=== PATIENT | male | born 1980 | race Caucasian/White ===

== ENCOUNTER 2024-08-16 08:19 | Outpatient (OUT) | payer OTHER, SELFPAY | END 2024-08-16 08:20 | disposition home or self-care (01) | LOC: PST 08:19 | PROVIDERS: PCP Family Medicine; Visit Provider Surgery | DX: Z12.11 Encounter for screening for malignant neoplasm of colon (principal) ==

== ENCOUNTER 2024-08-30 06:33 | Day surgery (SDC) | payer OTHER, SELFPAY ==
--- OUTSIDE RECORDS SUMMARY | 2024-08-30 06:36 | XMS_ITS | CCD ---
Author Organization [facility] Care Team Providers Care Leguillon Debeader Name Role Phone DR GARRISON MORA Attending Unavailable DR GARRISON MORA Consulting Unavailable DR GARRISON MORA Primary Care Unavailable DR GARRISON MORA Admitting Unavailable GARRISON MORA Attending Unavailable Garrison Mora MD Primary Care Provider Medications Current Medications Medication Drug Class(es) Dates Sig (Normalized) Sig (Original) bisacodyl 5 mg delayed release oral tablet (2 sources) Stimulant Laxative Start: 05-04-2024 End: 05-04-2024 take 1 tablet by mouth once bisacodyl (Dulcolax) 5 MG EC tablet Indications: Screening for malignant neoplasm of colon Take 1 tablet (5 mg) by mouth 1 time for 1 dose Do not crush, chew, or split. Take as detailed on clinic hand out for colonoscopy prep 1 tablet 05/04/2024 05/04/2024 Active lisinopril 5 mg oral tablet (7 sources) Angiotensin Converting Enzyme Inhibitor Start: 04-20-2024 End: 04-20-2024 take 1 tablet by mouth once daily lisinopril 5 MG tablet Indications: Essential hypertension, benign (CMS/HCC) Take 1 tablet (5 mg) by mouth Daily 90 tablet 3 04/20/2024 Active polyethylene glycol 3350 70108 mg powder for oral solution (2 sources) Osmotic Laxative Start: 05-04-2024 End: 05-04-2024 take 17 g by mouth once polyethylene glycol, PEG, 3350 (Glycolax) 17 GM/SCOOP powder Indications: Colonoscopy Take 238 g by mouth 1 (one) time for 1 dose Take as detailed from clinic hand out for colonoscopy prep 238 g 05/04/2024 05/04/2024 Active Problems Active Problems Problem Classification Problem Date Documented Da te Episodic/Chronic Essential hypertension (8 sources) Benign essential hypertension; Translations: [Essential (primary) hypertension] Onset: 04-20-2024 04-20-2024 Chronic Nutritional deficiencies (7 sources) Vitamin D deficiency, unspecified; Translations: [Vitamin D deficiency] Onset: 04-08-2022 04-20-2024 Chronic Other screening for suspected conditions (not mental disorders or infectious disease) (2 sources) Patient encounter status; Translations: [Encounter for screening for malignant neoplasm of colon] 05-04-2024 Episodic Past or Other Problems Problem Classification Problem Date Documented Date Episodic/Chronic Diverticulosis and diverticulitis (6 sources) Diverticulosis of sigmoid colon; Translations: [Diverticulosis of large intestine without perforation or abscess without bleeding] Onset: 04-20-2024 Resolved: 04-20-2024 04-20-2024 Chronic Other non-traumatic joint disorders (6 sources) Pain in right shoulder; Translations: [Pain in joint, shoulder region] Onset: 04-20-2024 Resolved: 04-20-2024 04-20-2024 Episodic Other skin disorders (6 sources) Vesicular eczema; Translations: [Dyshidrosis [pompholyx]] Onset: 04-20-2024 04-20-2024 Episodic Residual codes; unclassified (6 sources) Family history of malignant melanoma; Translations: [Family history of malignant neoplasm of other organs or systems] Onset: 04-20-2024 04-20-2024 Episodic Spondylosis; intervertebral disc disorders; other back problems (6 sources) Degeneration of lumbar intervertebral disc; Translations: [Other intervertebral disc degeneration, lumbar region] Onset: 04-20-2024 Resolved: 04-20-2024 04-20-2024 Chronic Spondylosis; intervertebral disc disorders; other back problems (6 sources) Neck pain; Translations: [Cervicalgia] Onset: 04-20-2024 Resolved: 04-20-2024 04-20-2024 Episodic Results Test Name Value Interpretation Reference Range Facil ity VIT D 25-OH LABCORPon 2021 Vitamin D, 25-Hydroxy 42.1 ng/mL Normal 30.0-100.0 [facility] Comment on above: Result Comment: Amanda min D deficiency has been defined by the [place] [employer] and an Endocrine Society practice guideline as a level of serum 25-OH vitamin D less than 20 ng/mL (1,2). The Endocrine Society went on to further define vitamin D insufficiency as a level between 21 and 29 ng/mL (2). 1. IOM ([place] [employer]). 2010. Dietary reference intakes for calcium and D. [place]: The National Academies Press. 2. Jonathon MF, Nadege JUSTIN, Linda NAVARRO, et al. Evaluation, treatment, and prevention of vitamin D deficiency: an Endocrine Society clinical practice guideline. JCEM. 2010; 96(7):1911-30. Performed By: #### V ITADLC #### [facility] [address] [place] [address] Dr. Stefan Ruffin CBC AUTO DIFFon 04-07-2022 BASO # 0.1 103/ul Normal 0.0-0.1 [facility] Comment on above: Performed By: #### C BC #### [facility] [address] [place] [address] Dr. Stefan Ruffin Basophils/100 WBC (Bld) 1.2 % Normal 0.2-2.0 [facility] Comment on above: Performed By: #### C BC #### [facility] [address] [place] [address] Dr. Stefan Ruffin EO # 0.2 103/ul Normal 0.0-0.7 [facility] Comment on above: Performed By: #### C BC #### [facility] [address] [place] [address] Dr. Stefan Ruffin Eosinophils/100 WBC (Bld) 5.6 % Normal 0.9-7.0 [facility] Comment on above: Performed By: #### C BC #### [facility] [address] [place] [address] Dr. Stefan Ruffin Erythrocyte distribution width (RBC) [Ratio] 12.8 % Normal 11.0-15.0 [facility] Comment on above: Performed By: #### C BC #### [facility] [address] [place] [address] Dr. Stefan Ruffin Hematocrit (Bld) [Volume fraction] 47.3 % Normal 42.0-54.0 [facility] Comment on above: Performed By: #### C BC #### [facility] [address] [place] [address] Dr. Stefan Ruffin Hemoglobin (Bld) [Mass/Vol] 16.2 g/dL Normal 14.0-18.0 [facility] Comment on above: Performed By: #### C BC #### [facility] [address] [place] [address] Dr. Stefan Ruffin IG # 0.01 10e3/ul Normal 0.00-0.03 [facility] Comment on above: Performed By: #### C BC #### [facility] [address] [place] [address] Dr. Stefan Ruffin IG % 0.2 % Normal 0.0-0.5 [facility] Comment on above: Performed By: #### C BC #### [facility] [address] [place] [address] Dr. Stefan Ruffin LYMPH # 1.6 103/ul Normal 1.2-3.8 [facility] Comment on above: Performed By: #### C BC #### [facility] [address] [place] [address] Dr. Stefan Ruffin Lymphocytes/100 WBC (Bld) 36.8 % Normal 20.5-60.0 [facility] Comment on above: Performed By: #### C BC #### [facility] [address] [place] [address] Dr. Stefan Ruffin MANUAL DIFF REQ NO Normal [facility] Comment on above: Performed By: #### C BC #### [facility] [address] [place] [address] Dr. Stefan Ruffin MCH (RBC) [Entitic mass] 31.8 pg Normal 25.9-34.0 [facility] Comment on above: Performed By: #### C BC #### [facility] [address] [place] [address] Dr. Stefan Ruffin MCHC (RBC) [Mass/Vol] 34.2 g/dL Normal 29.9-35.2 [facility] Comment on above: Performed By: #### C BC #### [facility] [address] [address] [address] Stefan Ruffin MCV (RBC) [Entitic vol] 92.9 fL Normal 80.0-94.0 [facility] Comment on above: Performed By: #### C BC #### [facility] [address] [place] [address] Dr. Setfan Ruffin MONO # 0.4 103/ul Normal 0.3-0.8 [facility] Comment on above: Performed By: #### C BC #### [facility] [address] [place] [address] Dr. Stefan Ruffin Monocytes/100 WBC (Bld) 8.1 % Normal 1.7-12.0 [facility] Comment on above: Performed By: #### C BC #### [facility] [address] [place] [address] Dr. Stefan Ruffin NEUT # 2.1 103/ul Normal 1.4-6.5 [facility] Comment on above: Performed By: #### C BC #### [facility] [address] [place] [address] Dr. Stefan Ruffin Neutrophils/100 WBC (Bld) 48.1 % Normal 43.0-75.0 [facility] Comment on above: Performed By: #### C BC #### [facility] [address] [place] [address] Dr. Stefan Ruffin Platelet mean volume (Bld) [Entitic vol] 10.2 fL Normal 9.5-13.5 [facility] Comment on above: Performed By: #### C BC #### [facility] [address] [place] [address] Dr. Stefan Ruffin PLT 274 103/ul Normal 150-450 [facility] Comment on above: Performed By: #### C BC #### [facility] [address] [place] [address] Dr. Stefan Ruffin RBC 5.09 106/ul Normal 4.70-6.10 [facility] Comment on above: Performed By: #### C BC #### [facility] [address] [place] [address] Dr. Stefan Ruffin WBC 4.3 103/ul Normal 4.0-11.0 [facility] Comment on above: Performed By: #### C BC #### [facility] [address] [address] [address] Stefan Ruffin GLYCOHEMOGLOBIN A1Con 2021 ADA RECOMMENDATION SEE BELOW Normal [facility] Comment on above: Result Comment: ADA RECOMMENDED LIMIT 4.0 - 6.0 ADA THERAPEUTIC TARGET < 7.0 ACTION SUGGESTED > 7.0 Performed By: #### A 1C #### [facility] [address] [address] [address] Stefan Ruffin Glucose [Mass/Vol] 108 mg/dL Normal [facility] Comment on above: Performed By: #### A 1C #### [facility] [address] [place] [address] Dr. Stefan Ruffin HbA1c (Bld) [Mass fraction] 5.4 % Normal 4.5-6.2 [facility] Comment on above: Performed By: #### A 1C #### [facility] [address] [address] [address] Stefan Ruffin LIPID PROFILEon 04-07-2022 CHOL-HDL RATIO NORM SEE BELOW Normal [facility] Comment on above: Result Comment: 3.3 - 4.4 LOW RISK 4.4 - 7.1 AVERAGE RISK 7.1 - 11.0 MODERATE RISK >11.0 HIGH RISK Performed By: #### L IPID, LIVER, TSH, BMP #### [facility] [address] [address] [address] Stefan Ruffin Cholesterol [Mass/Vol] 209 mg/dL Critically high <=200 [facility] Comment on above: Performed By: #### L IPID, LIVER, TSH, BMP #### [facility] [address] [address] [address] Stefan Ruffin Cholesterol in HDL [Mass/Vol] 40 mg/dL Normal 40-60 [facility] Comment on above: Performed By: #### L IPID, LIVER, TSH, BMP #### [facility] [address] [address] [address] Stefan Ruffin Cholesterol in LDL [Mass/Vol] 156.4 mg/dL Normal [facility] Comment on above: Performed By: #### L IPID, LIVER, TSH, BMP #### [facility] [address] [address] [address] Stefan Ruffin Cholesterol.total/Cho lesterol in HDL [Mass ratio] 5.2 {ratio} Normal [facility] Comment on above: Performed By: #### L IPID, LIVER, TSH, BMP #### [facility] [address] [place] [address] Dr. Stefan Ruffin HDL NORMAL > or = 60 mg/dl - LOW CARDIOVASCULAR RISK <40 mg/dl - HIGH CARDIOVASCULAR RISK Normal [facility] Comment on above: Performed By: #### L IPID, LIVER, TSH, BMP #### [facility] [address] [place] [address] Dr. Stefan Ruffin LDL CALC NORMAL SEE BELOW Normal [facility] Comment on above: Result Comment: <100 mg/dl OPTIMAL 100 - 129 mg/dl NEAR OR ABOVE OPTIMAL 130 - 159 mg/dl BORDERLINE HIGH 160 - 189 mg/dl HIGH >190 mg/dl VERY HIGH Performed By: #### L IPID, LIVER, TSH, BMP #### [facility] [address] [place] [address] Dr. Stefan Ruffin Triglyceride [Mass/Vol] 63 mg/dL Normal <=150 [facility] Comment on above: Performed By: #### L IPID, LIVER, TSH, BMP #### [facility] [address] [place] [address] Dr. Stefan Ruffin VLDL CALC 12.6 mg/dL Normal [facility] Comment on above: Performed By: #### L IPID, LIVER, TSH, BMP #### [facility] [address] [place] [address] Dr. Stefan Ruffin LIVER PROFILEon 04-07-2022 Albumin [Mass/Vol] 4.3 g/dL Normal 3.4-5.0 [facility] Comment on above: Performed By: #### L IPID, LIVER, TSH, BMP #### [facility] [address] [place] [address] Dr. Stefan Ruffin Albumin/Globulin [Mass ratio] 1.3 {ratio} Normal [facility] Comment on above: Performed By: #### L IPID, LIVER, TSH, BMP #### [facility] [address] [place] [address] Dr. Stefan Ruffin ALP [Catalytic activity/Vol] 47 U/L Normal 46-116 [facility] Comment on above: Performed By: #### L IPID, LIVER, TSH, BMP #### [facility] [address] [place] [address] Dr. Stefan Ruffin ALT [Catalytic activity/Vol] 34 U/L Normal 16-63 [facility] Comment on above: Performed By: #### L IPID, LIVER, TSH, BMP #### [facility] [address] [place] [address] Dr. Stefan Ruffin AST [Catalytic activity/Vol] 25 U/L Normal 15-37 [facility] Comment on above: Performed By: #### L IPID, LIVER, TSH, BMP #### [facility] [address] [place] [address] Dr. Stefan Ruffin BILI, CONJUGATED 0.2 mg/dL Normal 0.0-0.2 [facility] Comment on above: Performed By: #### L IPID, LIVER, TSH, BMP #### [facility] [address] [place] [address] Dr. Stefan Ruffin Bilirubin [Mass/Vol] 1.0 mg/dL Normal 0.2-1.0 [facility] Comment on above: Performed By: #### L IPID, LIVER, TSH, BMP #### [facility] [address] [place] [address] Dr. Stefan Ruffin Globulin (S) [Mass/Vol] 3.4 g/dL Normal [facility] Comment on above: Performed By: #### L IPID, LIVER, TSH, BMP #### [facility] [address] [place] [address] Dr. Stefan Ruffin Protein [Mass/Vol] 7.7 g/dL Normal 6.4-8.2 [facility] Comment on above: Performed By: #### L IPID, LIVER, TSH, BMP #### [facility] [address] [address] [address] Stefan Ruffin PROF CHEM 8 (BAS METB)on Anion gap [Moles/Vol] 11.8 mmol/L Normal [facility] Comment on above: Performed By: #### L IPID, LIVER, TSH, BMP #### [facility] [address] [address] [address] Stefan Ruffin Calcium [Mass/Vol] 9.3 mg/dL Normal 8.5-10.1 [facility] Comment on above: Performed By: #### L IPID, LIVER, TSH, BMP #### [facility] [address] [place] [address] Dr. Stefan Ruffin Chloride [Moles/Vol] 100 mmol/L Normal 98-107 [facility] Comment on above: Performed By: #### L IPID, LIVER, TSH, BMP #### [facility] [address] [place] [address] Dr. Stefan Ruffin CO2 [Moles/Vol] 29.0 mmol/L Normal 21.0-32.0 [facility] Comment on above: Performed By: #### L IPID, LIVER, TSH, BMP #### [facility] [address] [place] [address] Dr. Stefan Ruffin Creatinine [Mass/Vol] 0.91 mg/dL Normal 0.70-1.30 [facility] Comment on above: Performed By: #### L IPID, LIVER, TSH, BMP #### [facility] [address] [place] [address] Dr. Stefan Ruffin EGFR-AF [place] >60 Normal >=60 [facility] Comment on above: Performed By: #### L IPID, LIVER, TSH, BMP #### [facility] [address] [place] [address] Dr. Stefan Ruffin EGFR-NON AF [place] >60 Normal >=60 [facility] Comment on above: Performed By: #### L IPID, LIVER, TSH, BMP #### [facility] [address] [address] [address] Stefan Ruffin Glucose [Mass/Vol] 88 mg/dL Normal 74-106 [facility] Comment on above: Performed By: #### L IPID, LIVER, TSH, BMP #### [facility] [address] [place] [address] Dr. Stefan Ruffin Potassium [Moles/Vol] 3.8 mmol/L Normal 3.5-5.1 [facility] Comment on above: Performed By: #### L IPID, LIVER, TSH, BMP #### [facility] [address] [place] [address] Dr. Stefan Ruffin Sodium [Moles/Vol] 137 mmol/L Normal 136-145 [facility] Comment on above: Performed By: #### L IPID, LIVER, TSH, BMP #### [facility] [address] [place] [address] Dr. Stefan Ruffin Urea nitrogen [Mass/Vol] 14.0 mg/dL Normal 7.0-18.0 [facility] Comment on above: Performed By: #### L IPID, LIVER, TSH, BMP #### [facility] [address] [place] [address] Dr. Stefan Ruffin Urea nitrogen/Creatinine [Mass ratio] 15.4 mg/mg Normal [facility] Comment on above: Performed By: #### L IPID, LIVER, TSH, BMP #### [facility] [address] [place] [address] Dr. Stefan Ruffin TSHon 04-07-2022 TSH 1.832 uIU/mL Normal 0.358-3.740 [facility] Comment on above: Performed By: #### L IPID, LIVER, TSH, BMP #### [facility] [address] [place] [address] Dr. Stefan Ruffin Vital Signs Date Time Vital Sign Value Performing Clinician Milan lity 05-04-2024 13:55-0400 Body height 172.7 cm Robert Latif [employer] Work Phone: [facility] 05-04-2024 13:55-0400 Body mass index (BMI) [Ratio] 27.67 kg/m2 Robert Latif DO Work Phone: [facility] 05-04-2024 13:55-0400 Body weight 82.56 kg Robert Latif DO Work Phone: [facility] 05-04-2024 13:55-0400 Diastolic blood pressure 74 mm[Hg] Robert Latif DO Work Phone: [facility] 05-04-2024 13:55-0400 Heart rate 79 /min Robert Latif DO Work Phone: [facility] 05-04-2024 13:55-0400 Respiratory rate 12 /min Robert Latif DO Work Phone: [facility] 05-04-2024 13:55-0400 SaO2% (BldA) [Mass fraction] 98 % Robert Latif DO Work Phone: [facility] 05-04-2024 13:55-0400 Systolic blood pressure 116 mm[Hg] Robert Latif DO Work Phone: [facility] 04-20-2024 09:29-0400 Body height 172.7 cm Garrison Mora MD Work Phone: [facility] 04-20-2024 09:29-0400 Body mass index (BMI) [Ratio] 27.98 kg/m2 Garrison Mora MD Work Phone: [facility] 04-20-2024 09:29-0400 Body temperature 97.3 [degF] Garrison Mora MD Work Phone: [facility] 04-20-2024 09:29-0400 Body weight 83.46 kg Garrison Mora MD Work Phone: [facility] 04-20-2024 09:29-0400 Diastolic blood pressure 86 mm[Hg] Garrison Mora MD Work Phone: [facility] 04-20-2024 09:29-0400 Heart rate 78 /min Garrison Mora MD Work Phone: [facility] 04-20-2024 09:29-0400 Respiratory rate 20 /min Garrison Mora MD Work Phone: [facility] 04-20-2024 09:29-0400 SaO2% (BldA) [Mass fraction] 98 % Garriosn Mora MD Work Phone: [facility] 04-20-2024 09:29-0400 Systolic blood pressure 120 mm[Hg] Garrison Mora MD Work Phone: [facility] Encounters Encounter Date Encounter Type Care Provider Facility Start: 05-04-2024 End: 05-04-2024 Bamboo flowsheet Robert Salomon [employer] Work Phone: [facility] Start: 05-04-2024 End: 05-04-2024 Bamboo flowsheet Robert Salomon [employer] Work Phone: [facility] Start: 05-04-2024 End: 05-04-2024 Patient encounter procedure Robert Latif [employer] Work Phone: [facility] Comment on above: Screening for malign ant neoplasm of colon (Primary Dx) Start: 04-20-2024 End: 04-20-2024 Bamboo flowsheet Garrison Mora MD Work Phone: [facility] Start: 04-20-2024 End: 04-20-2024 Bamboo flowsheet Garrison Mora MD Work Phone: [facility] Start: 04-20-2024 End: 04-20-2024 Patient encounter procedure Garrison Mora MD Work Phone: [facility] Work Phone: Start: 04-20-2024 End: 04-20-2024 Periodic preventive med est patient 40-64yrs Garrison Mora MD Work Phone: [facility] Comment on above: Annual physical exam (Primary Dx); Essential hypertension, benign (CMS/HCC) Start: 04-20-2024 End: 04-20-2024 ambulatory GARRISON MORA Not Available Start: 04-08-2022 Encounter for genera l adult medical examination without abnormal findings DR GARRISON MORA [facility] Start: 04-07-2022 End: 04-08-[address] GARRISON MORA Facility:[facility] Start: 04-07-2022 End: 04-08-2022 Encounter for general adult medical examination without abnormal findings DR GARRISON MORA Facility:[facility] Procedures Date Procedure Procedure Detail Performing Clinician Start: 04-07-[address] GARRISON VELIZ Comment on above: Performed By: #### [facility] #### [facility] [address] [address] [address] Stefan Ruffin Plan of Treatment Date Care Activity Detail Author Start: 04-21-2025 End: 04-21-2025 Patient encounter procedure 04/21/2025 9:00 AM EDT Office Visit [facility] [address] [place] [address] Garrison Mora MD [address] [place] [address] [facility] Start: 05-04-2024 End: 05-04-2024 Patient encounter procedure 05/04/2024 2:00 PM EDT Office Visit [facility] [address] [facility] [address] [place] [address] Robert Latif DO [address] [place] [id number] Arrived [facility] Comment on above: Arrived Start: 04-20-2024 End: 04-20-2025 Basic metabolic 1998 panel - Serum or Plasma Basic metabolic panel Lab Routine Annual physical exam Expected: 04/20/2024 (Approximate), Expires: 04/20/2025 [facility] Comment on above: Expected: 04/20/2024 (Approximate), Expires: 04/20/2025 Start: 04-20-2024 End: 04-20-2025 CBC W Auto Differential panel - Blood CBC and differential Lab Routine Annual physical exam Expected: 04/20/2024 (Approximate), Expires: 04/20/2025 [facility] Comment on above: Expected: 04/20/2024 (Approximate), Expires: 04/20/2025 Start: 04-20-2024 End: 04-20-2025 Hemoglobin A1c/Hemoglobin.total in Blood Hemoglobin A1c Lab Routine Annual physical exam Expected: 04/20/2024 (Approximate), Expires: 04/20/2025 [facility] Work Phone: Comment on above: Expected: 04/20/2024 (Approximate), Expires: 04/20/2025 Start: 04-20-2024 End: 04-20-2025 Hepatic function 2000 panel - Serum or Plasma Hepatic function panel Lab Routine Annual physical exam Expected: 04/20/2024 (Approximate), Expires: 04/20/2025 [facility] Comment on above: Expected: 04/20/2024 (Approximate), Expires: 04/20/2025 Start: 04-20-2024 End: 04-20-2025 Lipid 1996 panel - Serum or Plasma Lipid panel Lab Routine Annual physical exam Expected: 04/20/2024 (Approximate), Expires: 04/20/2025 [facility] Comment on above: Expected: 04/20/2024 (Approximate), Expires: 04/20/2025 Start: 04-20-2024 End: 04-20-2025 Prostate specific Ag [Mass/volume] in Serum or Plasma PSA Lab Routine Annual physical exam Expected: 04/20/2024 (Approximate), Expires: 04/20/2025 [facility] Comment on above: Expected: 04/20/2024 (Approximate), Expires: 04/20/2025 Start: 04-20-2024 End: 04-20-2025 Thyrotropin [Units/volume] in Serum or Plasma TSH Lab Routine Annual physical exam Expected: 04/20/2024 (Approximate), Expires: 04/20/2025 [facility] Comment on above: Expected: 04/20/2024 (Approximate), Expires: 04/20/2025 Start: 04-20-2024 End: 04-20-2024 Patient encounter procedure 04/20/2024 9:00 AM EDT Office Visit [facility] [address] [place] [id number] Garrison Mora MD [address] [place] [phone] Arrived [facility] Comment on above: Arrived Start: 04-10-2024 Influenza vaccination Influenza Vacc ine (#1) [facility] Payers Date Payer Category Payer Unknown [facility] [employer] [id number] 2023-Present [phone] [place] [id number] 2023 Unknown [id number] 1979 Unknown [id number] 1979 Unknown [id number] 1959 Unknown [id number] Social History Date Type Detail Facility Tobacco smoking stat [facility] Tobacco smoking consumption unknown [facility] Start: 1980 Sex assigned at Not on file [facility] Start: 04-20-2024 End: 05-04-2024 Gender identity Not on file [facility] Start: 04-20-2024 Tobacco smoking stat [facility] Never smoked tobacco [facility] Start: 04-20-2024 Tobacco use and exposure Smokeless t obacco non-user [facility] Start: 04-20-2024 End: 05-04-2024 History of Social function [facility] History of Present illness Narrative 05-04-2024 Robert Latif DO - 05/04/2024 2:00 PM EDT Note Date & Type Note Facility 05-04-2024 History of Presen t illness Narrative General Surgery H&P Chito Gar 1980 Chito Gar is a 43 y.o. male presents with chief complaint of Colonoscopy (Pt presents today for a colonoscopy consult. He states that he has never had a colonoscopy before. Pt denies any abdominal pain or any changes in bowel movements. He states that he does notice bleeding for the rectum every once in awhile from hemorrhoids. Pt denies any family hx of colon cancer that he knows of. ) Denies changes in bowel habits. Denies changes in caliber of stools. Denies hx of unplanned weight loss. Denies fevers, chills, or sweats. Denies nausea or vomiting. Last colonoscopy was never. SUBJECTIVE: MEDICATIONS: ALLERGIES Current Outpatient Medications Medication Instructions bisacodyl (DULCOLAX) 5 mg, Oral, Once, Do not crush, chew, or split. Take as detailed on clinic hand out for colonoscopy prep lisinopril 5 mg, Oral, Daily polyethylene glycol (PEG) 3350 (GLYCOLAX) 238 g, Oral, Once, Take as detailed from clinic hand out for colonoscopy prep No Known Allergies PAST MEDICAL HISTORY: SOCIAL HISTORY SURGICAL HISTORY: History reviewed. No pertinent past medical history. Social History Tobacco Use Smoking status: Never Smokeless tobacco: Never History reviewed. No pertinent surgical history. No family history on file. No Known Allergies History reviewed. No pertinent surgical history. Tobacco Use: Low Risk (05/04/2024) Patient History Smoking Tobacco Use: Never Smokeless Tobacco Use: Never Passive Exposure: Not on file Alcohol Use: Not on file Depression: Not on file Physical Activity: Not on file REVIEW OF SYMPTOMS: Review of Systems All other systems reviewed and are negative. 10 systems were reviewed. Positives noted above. Remainder are negative per CMS guidelines. OBJECTIVE: Visit Vitals BP 116/74 Pulse 79 Resp 12 Ht 5' 8 Wt 182 lb SpO2 98% BMI 27.67 kg/m Smoking Status Never BSA 1.99 m Physical Exam Vitals reviewed. General: AAOx3, NAD Head: atraumatic normocephalic Neck: trachea midline. No masses or lymphadenopathy Heart: Regular rate and rhythm Lungs: equal chest rise and fall, non labored breathing Abdomen: soft, nontender, and non distended Ext: motor 5/5 all extremities with no gross deformities Psych: alert and oriented, behavior appropriate ASSESSMENT AND PLAN: Assessment/Plan Diagnoses and all orders for this visit: Screening for malignant neoplasm of colon - bisacodyl (Dulcolax) 5 MG EC tablet; Take 1 tablet (5 mg) by mouth 1 time for 1 dose Do not crush, chew, or split. Take as detailed on clinic hand out for colonoscopy prep - polyethylene glycol, PEG, 3350 (Glycolax) 17 GM/SCOOP powder; Take 238 g by mouth 1 (one) time for 1 dose Take as detailed from clinic hand out for colonoscopy prep Plan: Patient is average risk for colon cancer. Colonoscopy can be scheduled electively. Patient informed of the risks of procedure which include but not limited to bleeding, perforation, and risks of anesthesia. Patient understood risks and signed informed consent for the procedure under monitored anesthesia care. Handout for bowel prep provided in clinic. Patient was informed of the need for a ride home from the hospital and the need for someone to be with them for the following 24 hrs post procedure. Thank you, K Elfego Latif DO documented in this encounter [facility] History of Present illness Narrative 04-20-2024 Garrison Mora MD - 04/20/2024 9:57 AM Brittaney Mora MD - 04/20/2024 9:57 AM Brittaney Mora MD - 04/20/2024 9:00 AM EDT Note Date & Type Note Facility 04-20-2024 History of Presen t illness Narrative Associated Problem(s): Essential hypertension, benign (CMS/HCC) BP controlled and monitor PRN. Associated Problem(s): Annual physical exam Due for labs. Discussed proper diet and regular aerobic exercise. Need aerobic exercise 5-6 days a week for 30 minutes at a time. Smaller portions and limit total calories. Colonoscopy after age 45. Tetanus every 10 years. Advised not to smoke. Discussed daily Aspirin therapy. Images from the original note were not included. Subjective Patient ID: Chito Gar is a 43 y.o. male who presents for Annual Exam (wellness). Presents for annual PE. Patient feels well today. Weight up 7 pounds since last visit. Tries to stay active around house and with his kids but no regular exercise. Tries to watch diet and eat healthy. Increased fruits and vegetables. Smaller portions and limits snacking. Tries to limit total daily calories. Due for labs. Checking BP PRN and typically controlled. BP normal today. Taking medication daily and tolerating without side effects. Review of Systems Constitutional: Negative for fatigue. Respiratory: Negative for cough, shortness of breath and wheezing. Cardiovascular: Negative for chest pain and palpitations. Gastrointestinal: Negative for abdominal pain, diarrhea, nausea and vomiting. Genitourinary: Negative for dysuria. Objective Physical Exam Constitutional: General: He is not in acute distress. Appearance: Normal appearance. HENT: Head: Normocephalic. Right Ear: Tympanic membrane and ear canal normal. Left Ear: Tympanic membrane and ear canal normal. Eyes: Extraocular Movements: Extraocular movements intact. Pupils: Pupils are equal, round, and reactive to light. Cardiovascular: Rate and Rhythm: Normal rate and regular rhythm. Heart sounds: No murmur heard. No friction rub. No gallop. Pulmonary: Breath sounds: Normal breath sounds. No wheezing, rhonchi or rales. Abdominal: General: Bowel sounds are normal. There is no distension. Palpations: Abdomen is soft. Tenderness: There is no abdominal tenderness. There is no guarding or rebound. Musculoskeletal: General: Normal range of motion. Left lower leg: No edema. Neurological: General: No focal deficit present. Mental Status: He is alert. Cranial Nerves: No cranial nerve deficit. Deep Tendon Reflexes: Reflexes normal. Assessment/Plan Problem List Items Addressed This Visit Essential hypertension, benign (CMS/HCC) BP controlled and monitor PRN. Relevant Medications lisinopril 5 MG tablet Annual physical exam - Primary Due for labs. Discussed proper diet and regular aerobic exercise. Need aerobic exercise 5-6 days a week for 30 minutes at a time. Smaller portions and limit total calories. Colonoscopy after age 45. Tetanus every 10 years. Advised not to smoke. Discussed daily Aspirin therapy. Relevant Orders Hemoglobin A1c Basic metabolic panel CBC and differential Hepatic function panel Lipid panel PSA TSH documented in this encounter [facility] Evaluation note Note Date & Type Note Facility Evaluation note Diagnosis Annual physical exam- Primary Routine general medical examination at a health care facility Essential hypertension, benign (CMS/HCC) Essential hypertension, benign documented in this encounter [facility] Evaluation note Note Date & Type Note Facility Evaluation note Diagnosis Screening for malignant neoplasm of colon- Primary documented in this encounter [facility] Summary Purpose Family History No Family History Records FoundNo Family History Records Found Advance Directives No Advanced Directives Records FoundNo Advanced Directives Records Found Additional Source Comments (unrecognized sect ion and content) No Status Records FoundNo Status Records Found INFORMATION SOURCE (unrecogn ized section and content) DATE CREATED AUTHOR 04/09/2022 [facility] DATE CREATED AUTHOR AUTHOR'S ORGANIZ ATION 04/22/2024 [facility] [employer] Care Teams (unrecognized sec tion and content) [employer] Debeader Relationship Specialty Start Date End Date Garrison Mora MD [address] [place] [phone] PCP - General Family Medicine 04/04/24 [employer] Relationship Specialty Start Date End Date Garrison Mora MD [address] [place] [phone] PCP - General Family Medicine 04/04/24 [employer] Relationship Specialty Start Date End Date Garrison Mora MD [address] [place] [phone] PCP - General Family Medicine 04/04/24 [employer] Relationship Specialty Start Date End Date Garrison Mora MD [address] [place] [phone] PCP - General Family Medicine 04/04/24 Reason for Visit (unrecogniz ed section and content) Reason Comments Annual Exam wellness Reason Comments Colonoscopy Pt presents today fo r a colonoscopy consult. He states that he has never had a colonoscopy before. Pt denies any abdominal pain or any changes in bowel movements. He states that he does notice bleeding for the rectum every once in awhile from hemorrhoids. Pt denies any family hx of colon cancer that he knows of. FOR RECORDS PERTAINING TO PATIENTS WHO ARE OR HAVE BEEN ENROLLED IN A CHEMICAL DEPENDENCY/SUBSTANCEABUSE PROGRAM, SOME INFORMATION MAY BE OMITTED. This clinical summary was aggregated from multiple sources. Caution should be exercised in using it in the provision of clinical care. This summary normalizes information from multiple sources, and as a consequence, information in this document may materially change the coding, format and clinical context of patient data. In addition, data may be omitted in some cases. CLINICAL DECISIONS SHOULD BE BASED ON THE PRIMARY CLINICAL RECORDS. [facility]. provides no warranty or guarantee of the accuracy or completeness of information in this document.
[2024-08-30 06:45] VITALS: BP 128/96; PULSE 91; TEMP 36.6; O2SAT 97; BMI 26.5
[2024-08-30] MEDS: 0.9 % SODIUM CHLORIDE 500 ML 50 ML IV (07:05)
--- NOTE | 2024-08-30 07:55 | W.PM.PROCNOT ---
Date of procedure: 08/30/24 Pre-op diagnosis: screening colonoscopy Post-op diagnosis: same as pre-op Procedure: Previous colonoscopy: never procedure: screening colonoscopy The patient was given IV conscious sedation.? The patient's SPO2 remained above 90% throughout the procedure. The colonoscope was inserted per rectum and advanced under direct vision to the cecum without difficulty.? The prep was good.? Findings: Terminal ileum os: normal Cecum/Ascending colon: normal Transverse colon: normal Descending/Sigmoid colon: normal Rectum/Anus: examined in normal and retroflexed positions and was normal Withdrawal Time was (minutes): 8 The colon was decompressed and the scope was removed.? The patient tolerated the procedure well. Recommendations/Plan: 1.? Lifestyle and dietary modifications as discussed 2.?F/U in 10 years 3.? Discussed with the family Anesthesia: MAC Surgeon: Robert Latif Estimated blood loss (mL): 0 Pathology: none sent Condition: stable Disposition: PACU
[2024-08-30 08:13] VITALS: BP 100/68; PULSE 78; O2SAT 94
[2024-08-30 08:28] VITALS: BP 96/60; PULSE 70; O2SAT 98
== END 2024-08-30 08:50 | disposition home or self-care (01) ==
PROVIDERS: PCP Family Medicine; Visit Provider Surgery
PROC: (CPT 00812; principal; 2024-08-30 07:55)
DX: Z12.11 Encounter for screening for malignant neoplasm of colon (principal); I10 Essential (primary) hypertension
CPT/HCPCS: 00812; 45378; J2704